=== PATIENT | male | born 1960 | race Caucasian/White ===

== ENCOUNTER 2023-07-26 16:19 | Emergency (ER) | payer MEDICARE, MEDICAID ==
[~2023-07-26] VITALS: Ht 167.6 cm; Wt 72.7 kg
[2023-07-26 16:20] VITALS: TEMP 97.9
[2023-07-26] MEDS ORDERED: DESYREL 50MG50 MG PO (16:23)
[2023-07-26] MEDS ORDERED: JANUVIA 100MG100 MG PO (16:24)
[2023-07-26] MEDS ORDERED: PRINIVIL10 MG PO (16:24)
[2023-07-26] MEDS ORDERED: ULTRAM 50MG TAB50 MG PO (16:24)
[2023-07-26] MEDS ORDERED: PLAVIX 75MG TAB75 MG PO (16:25)
[2023-07-26] MEDS ORDERED: AMBIEN 5MG TABLE5 MG PO (16:25)
[2023-07-26] MEDS ORDERED: ATARAX50 MG PO (16:26)
[2023-07-26] MEDS ORDERED: SINGULAIR 110 MG/TAB PO (16:26)
[2023-07-26] MEDS ORDERED: NORVASC 10MG10 MG PO (16:27)
[2023-07-26] MEDS ORDERED: CARAFATE 1GM1 G PO (16:28)
[2023-07-26] MEDS ORDERED: CRESTOR20 MG PO (16:28)
[2023-07-26] MEDS ORDERED: ZOFRAN 4MG T4 MG/TAB PO (16:29)
[2023-07-26] MEDS ORDERED: TOPROL XL 25MG25 MG PO (16:29)
[2023-07-26] MEDS ORDERED: NEURONTIN300 MG/CAP PO (16:30)
[2023-07-26] MEDS ORDERED: STOOL SOFTENER100 M2 PO (16:31)
[2023-07-26 17:11] LABS: COLLECTION METHOD CLEAN CATCH
[2023-07-26 17:15] LABS: BASO % 0.5 % (0.0-2.0); EOS # 0.1 K/mm3 (0.0-0.7); EOS % 0.9 % (0.0-4.0); GRAN # 4.3 K/mm3 (1.4-6.5); GRAN % 54.3 % (42.2-75.2); HEMATOCRIT 42.4 % (42.0-52.0); HEMOGLOBIN 14.3 g/dl (13.5-18.0); LYMPH # 2.8 K/mm3 (1.2-3.4); LYMPH % 35.5 % (20.0-51.0); MEAN CELL VOLUME 86 fl (80.0-100.0); MEAN CORPUSCULAR HEMOGLOBIN 29 pg (27-31); MEAN CORPUSCULAR HGB CONC 34 g/dl (33.0-37.0); MEAN PLATELET VOLUME 10.3 fl (7.4-10.4); MONO # 0.7 K/mm3 (0.1-0.6); MONO % 8.7 % (1.7-9.3); PLATELET COUNT 246 K/mm3 (130-400); RED BLOOD COUNT 4.96 M/mm3 (4.20-5.60); REDCELL DISTRIBUTION WIDTH-CV 14.9 % (11.5-14.5)
[2023-07-26 17:21] LABS: URINE APPEARANCE Clear (CLEAR/HAZY); URINE BLOOD Negative (NEGATIVE); URINE COLOR Yellow (YELLOW); URINE GLUCOSE Negative (NEGATIVE); URINE KETONE Negative (NEGATIVE); URINE NITRATE Negative (NEGATIVE); URINE PROTEIN(semi-quant) Negative (NEGATIVE); URINE UROBILINOGEN 0.2 E.U/dL (0.2-1.0)
[2023-07-26 17:26] LABS: SQUAMOUS EPITHELIAL None Seen /hpf (0-10); URINE BACTERIA None Seen /hpf (NONE SEEN); URINE RBC 0-2 /hpf (0-2)
[2023-07-26 17:40] LABS: ALBUMIN 4.1 gm/dL (3.4-4.8); BILIRUBIN,TOTAL 0.9 mg/dL (0.2-1.2); CALCIUM 9.9 mg/dL (8.4-10.2); CREATININE, serum 0.97 mg/dL (0.72-1.25); POTASSIUM 3.3 mmol/L (3.5-4.5); TOTAL PROTEIN 7.4 gm/dL (6.2-8.1)
[2023-07-26 20:31] VITALS: BP 184/87; PULSE 71
== END 2023-07-26 20:39 | disposition home or self-care (01) ==
LOC: COL.ER 16:19
PROVIDERS: Family Medicine
DX: F22 Delusional disorders (principal); F17.200 Nicotine dependence, unspecified, uncomplicated

== ENCOUNTER 2023-07-28 15:43 | Emergency (ER) | payer MEDICARE, MEDICAID ==
[~2023-07-28] VITALS: Ht 167.6 cm; Wt 72.7 kg
[~2023-07-28 15:43] MED LIST: AMBIEN 5MG TABLE5 MG PO; ATARAX50 MG PO; CARAFATE 1GM1 G PO; CRESTOR20 MG PO; DESYREL 50MG50 MG PO; JANUVIA 100MG100 MG PO; NEURONTIN300 MG/CAP PO; NORVASC 10MG10 MG PO; PLAVIX 75MG TAB75 MG PO; PRINIVIL10 MG PO; SINGULAIR 110 MG/TAB PO; STOOL SOFTENER100 M2 PO; TOPROL XL 25MG25 MG PO; ULTRAM 50MG TAB50 MG PO; ZOFRAN 4MG T4 MG/TAB PO
[2023-07-28 15:48] VITALS: TEMP 98.6
[2023-07-28 16:26] LABS: BASO # 0.1 K/mm3 (0.0-0.2); BASO % 0.8 % (0.0-2.0); EOS # 0.1 K/mm3 (0.0-0.7); EOS % 1.1 % (0.0-4.0); GRAN % 46.7 % (42.2-75.2); HEMATOCRIT 42.5 % (42.0-52.0); HEMOGLOBIN 14.7 g/dl (13.5-18.0); LYMPH # 3.7 K/mm3 (1.2-3.4); LYMPH % 43.3 % (20.0-51.0); MEAN CELL VOLUME 85 fl (80.0-100.0); MEAN CORPUSCULAR HEMOGLOBIN 30 pg (27-31); MEAN CORPUSCULAR HGB CONC 35 g/dl (33.0-37.0); MONO # 0.7 K/mm3 (0.1-0.6); MONO % 7.9 % (1.7-9.3); PLATELET COUNT 257 K/mm3 (130-400); RED BLOOD COUNT 4.99 M/mm3 (4.20-5.60)
[2023-07-28 16:49] LABS: ALANINE AMINOTRANSFERASE 17 U/L (0-55); ALKALINE PHOSPHATASE 91 U/L (40-150); ANION GAP 14 mmol/L (7-16); AST,SGOT 23 U/L (5-34); BLOOD UREA NITROGEN 4 mg/dL (8-26); CALCIUM 9.6 mg/dL (8.4-10.2); CARBON DIOXIDE 21 mmol/L (23-31); CHLORIDE 102 mmol/L (98-107); CREATININE, serum 0.92 mg/dL (0.72-1.25); GLUCOSE 113 mg/dL (70-99); POTASSIUM 3.3 mmol/L (3.5-4.5); SODIUM 137 mmol/L (136-145); TOTAL PROTEIN 7.4 gm/dL (6.2-8.1)
[2023-07-28 16:55] LABS: TROPONIN-I < 0.010 ng/mL (0.00-0.033)
[2023-07-28 18:20] VITALS: BP 172/89; PULSE 62
== END 2023-07-28 18:33 | disposition home or self-care (01) ==
LOC: COL.ER 15:43
PROVIDERS: Physician Assistant
DX: I10 Essential (primary) hypertension (principal); R46.89 Other symptoms and signs involving appearance and behavior

== ENCOUNTER 2023-08-04 14:51 | Emergency (ER) | payer MEDICARE, MEDICAID ==
[~2023-08-04] VITALS: Ht 177.8 cm; Wt 72.7 kg
[2023-08-04 15:50] LABS: BASO # 0.1 K/mm3 (0.0-0.2); BASO % 0.6 % (0.0-2.0); EOS # 0.1 K/mm3 (0.0-0.7); EOS % 0.8 % (0.0-4.0); GRAN # 4.1 K/mm3 (1.4-6.5); GRAN % 52.6 % (42.2-75.2); HEMATOCRIT 41.6 % (42.0-52.0); HEMOGLOBIN 14.6 g/dl (13.5-18.0); LYMPH # 2.8 K/mm3 (1.2-3.4); LYMPH % 36.1 % (20.0-51.0); MEAN CELL VOLUME 85 fl (80.0-100.0); MEAN CORPUSCULAR HEMOGLOBIN 30 pg (27-31); MEAN CORPUSCULAR HGB CONC 35 g/dl (33.0-37.0); MEAN PLATELET VOLUME 10.3 fl (7.4-10.4); MONO # 0.7 K/mm3 (0.1-0.6); MONO % 9.5 % (1.7-9.3); PLATELET COUNT 228 K/mm3 (130-400); RED BLOOD COUNT 4.91 M/mm3 (4.20-5.60); REDCELL DISTRIBUTION WIDTH-CV 14.5 % (11.5-14.5)
[2023-08-04 16:12] LABS: ALANINE AMINOTRANSFERASE 16 U/L (0-55); ALBUMIN 3.9 gm/dL (3.4-4.8); ALKALINE PHOSPHATASE 87 U/L (40-150); ANION GAP 11 mmol/L (7-16); AST,SGOT 18 U/L (5-34); BILIRUBIN,TOTAL 0.8 mg/dL (0.2-1.2); BLOOD UREA NITROGEN 5 mg/dL (8-26); CALCIUM 9.2 mg/dL (8.4-10.2); CARBON DIOXIDE 25 mmol/L (23-31); CHLORIDE 102 mmol/L (98-107); CREATININE, serum 1.03 mg/dL (0.72-1.25); GLUCOSE 116 mg/dL (70-99); POTASSIUM 3.1 mmol/L (3.5-4.5); SODIUM 138 mmol/L (136-145)
[2023-08-04 16:13] LABS: ACETAMINOPHEN < 1.0 ug/mL (10-30); ALCOHOL(ethanol),MEDICAL < 10 mg/dL (0-10); SALICYLATE < 5.0 mg/dL (15.0-30.0)
[2023-08-04 16:19] LABS: COLLECTION METHOD CLEAN CATCH
[2023-08-04 16:31] LABS: TSH w REFLEX 1.063 uIU/mL (0.350-4.940)
[2023-08-04 16:40] LABS: TRICYCLIC ANTIDEPRESS URINE NEGATIVE
[2023-08-04 17:05] LABS: PH 5.5 (5.0-8.5); SQUAMOUS EPITHELIAL 0-2 /hpf (0-10); URINE APPEARANCE Clear (CLEAR/HAZY); URINE BLOOD Negative (NEGATIVE); URINE COLOR Yellow (YELLOW); URINE GLUCOSE Negative (NEGATIVE); URINE KETONE Negative (NEGATIVE); URINE NITRATE Negative (NEGATIVE); URINE PROTEIN(semi-quant) Negative (NEGATIVE); URINE RBC 0-2 /hpf (0-2)
[2023-08-05 18:58] VITALS: BP 118/74; PULSE 65; TEMP 98.5
[2023-08-12] MEDS ORDERED: FLOMAX 0.40.4 MG/CAP PO (15:16)
[2023-08-12] MEDS ORDERED: MINIPRESS 5M5 MG/CAP PO (15:16)
[2023-08-12] MEDS ORDERED: TRADJENTA5 MG PO (15:17)
== END 2023-08-05 18:58 ==
LOC: COL.ER 14:51
PROVIDERS: Emergency Medicine
DX: R45.851 Suicidal ideations (principal); F17.200 Nicotine dependence, unspecified, uncomplicated; Z20.822 Contact with and (suspected) exposure to COVID-19